=== PATIENT | male | born 1940 | race Caucasian/White ===

== ENCOUNTER 2022-03-01 05:54 | Inpatient (IN) | payer MEDICARE, BC ==
[2022-03-01] MEDS ORDERED: Naloxone HCl 0.4 mg/ml Vial ONE (06:02)
[2022-03-01 06:14] LABS: #Basophils 0.1 thou/uL (0.0-0.2); #Eosinphils 0.2 thou/uL (0.0-0.7); #Lymphocytes 3.9 thou/uL (1.20-3.40); #Monocytes 0.8 thou/uL (0.11-0.59); #Neutrophils 5.4 thou/uL (1.40-6.50); %Basophils 0.8 % (0.0-1.0); %Eosinophils 1.8 % (0.0-10.0); %Lymphocytes 37.5 % (21.0-51.0); %Monocytes 7.9 % (0.0-10.0); %Neutrophils 51.9 % (42.0-75.0); Mean Corpuscular HGB CONC 32.9 g/dL (32.0-36.0); Mean Corpuscular Hemoglobin 30.5 pg (27.0-31.0); Mean Corpuscular Volume 92.4 fL (78.0-98.0); Mean Platelet Volume 6.3 fL (7.4-10.4); Platelet Count 257 thou/uL (130-400); RBC Distribution Width 14.2 % (11.5-14.5); Red Blood Cell (RBC) Count 4.92 mill/uL (4.70-6.10); White Blood Cell (WBC) Count 10.4 thou/uL (4.8-10.8)
[2022-03-01 06:28] LABS: INR-International Normal Ratio 1.6; PTT 43.8 sec (22.9-36.1)
[2022-03-01 06:30] LABS: ALT (SGPT) 16 U/L (8-55); AST (SGOT) 21 U/L (5-34); Albumin 3.8 g/dL (3.4-4.8); Alkaline Phosphatase 65 U/L (40-110); Anion Gap 15 mmol/L (10-20); BUN (Urea Nitrogen) 16 mg/dL (8.4-25.7); Bilirubin, Total 0.7 mg/dL (0.2-1.2); CK (CPK) 63 U/L (30-200); Calc. Creatinine Clearance 0 mL/min (70-130); Calcium 8.9 mg/dL (7.8-10.44); Carbon Dioxide 22 mmol/L (23-31); Chloride 104 mmol/L (98-107); Globulin 3.2 g/dL (2.4-3.5); Glucose 181 mg/dL (83-110); Potassium 4.1 mmol/L (3.5-5.1); Sodium 137 mmol/L (136-145)
[2022-03-01 08:02] LABS: Bilirubin Negative (Negative); Blood, Urine Negative (Negative); Clarity Clear (Clear); Glucose, Urine (Dipstick) Normal (Negative); Ketone, Urine Negative (Negative); Leukocyte Negative Leu/uL (Negative); Nitrite Negative (Negative); Protein, Urine (Dipstick) Negative (Neg-Trace); Specific Gravity, Urine 1.011 (1.002-1.036); Urobilinogen Normal mg/dL (Less than 2)
[2022-03-01] MEDS ORDERED: Sucralfate 1 GM/10 ML UDCUP ONE (08:21)
[2022-03-01] MEDS ORDERED: Pantoprazole 40 MG VIAL ONE (08:21)
[2022-03-01] MEDS ORDERED: Metoclopramide 10 MG/10 ML UDCUP ONE (08:21)
[2022-03-01] MEDS ORDERED: Metoclopramide HCl 10 MG/2 ML VIAL ONE (08:22)
[2022-03-01] MEDS ORDERED: Mag-Al 1200 mg/1200 mg/30 ML UDCUP ONE (11:33)
[2022-03-01] MEDS ORDERED: Lidocaine Viscous Sol 2% 15 ml UD Cup ONE (11:33)
[2022-03-01] MEDS ORDERED: Sodium Chloride 0.9% 1,000 ML IV SCH (15:30)
[2022-03-01] MEDS ORDERED: Ondansetron PF 4 MG/2 ML Vial IVP PRN (15:30)
[2022-03-01] MEDS ORDERED: Ondansetron ODT 4 MG TAB SL PRN (15:30)
[2022-03-01] MEDS ORDERED: Acetaminophen 325 MG TAB PO PRN (15:30)
[2022-03-01 16:40] VITALS: BMI 33.3
[2022-03-01] MEDS ORDERED: hydrALAZINE 20 MG/ML VIAL SLOW IVP PRN (19:41)
[2022-03-01] MEDS ORDERED: Lorazepam 2 MG/ML VIAL SLOW IVP PRN (20:11)
[2022-03-01] MEDS ORDERED: Atorvastatin Calcium 20 MG TAB PO SCH (21:00)
[2022-03-01] MEDS: Atorvastatin Calcium 40 MG TAB PO SCH (21:22)
[2022-03-01] MEDS: Sucralfate 1 GM TAB PO PRN (21:22)
[2022-03-02] MEDS ORDERED: Ondansetron PF 4 MG/2 ML Vial IVP PRN (04:55)
[2022-03-02] MEDS ORDERED: Ondansetron ODT 4 MG TAB PO PRN (04:57)
[2022-03-02] MEDS: Levothyroxine Sodium 75 MCG TAB PO SCH (05:00)
[2022-03-02 06:56] LABS: ALT (SGPT) 17 U/L (8-55); AST (SGOT) 25 U/L (5-34); Albumin 3.6 g/dL (3.4-4.8); Alkaline Phosphatase 58 U/L (40-110); Anion Gap 13 mmol/L (10-20); BUN (Urea Nitrogen) 10 mg/dL (8.4-25.7); Calc. Creatinine Clearance 142 mL/min (70-130); Calcium 8.5 mg/dL (7.8-10.44); Carbon Dioxide 24 mmol/L (23-31); Cardiac Risk 2.8 (Less than 4.5); Chloride 106 mmol/L (98-107); Cholesterol 133 mg/dl (< 200 Desired); Globulin 2.9 g/dL (2.4-3.5); Glucose 102 mg/dL (83-110); HDL Cholesterol 47 mg/dL (>60 Neg Risk); LDL Cholesterol, Calculated 75 mg/dL; Potassium 3.9 mmol/L (3.5-5.1); Protein, Total 6.5 g/dL (5.8-8.1); Sodium 139 mmol/L (136-145); Triglycerides 54 mg/dL (Less than 150)
[2022-03-02] MEDS: Sucralfate 1 GM TAB PO PRN ×3 (08:51→20:54)
[2022-03-02] MEDS: Rivaroxaban 2.5 MG TAB PO SCH (09:00)
[2022-03-02] MEDS ORDERED: Clopidogrel Bisulfate 75 MG TAB PO SCH (09:00)
[2022-03-02] MEDS: Atorvastatin Calcium 40 MG TAB PO SCH (20:54)
[2022-03-03] MEDS: Levothyroxine Sodium 75 MCG TAB PO SCH (05:03)
[2022-03-03 05:41] LABS: ALT (SGPT) 18 U/L (8-55); AST (SGOT) 25 U/L (5-34); Albumin 3.6 g/dL (3.4-4.8); Alkaline Phosphatase 58 U/L (40-110); Anion Gap 13 mmol/L (10-20); BUN (Urea Nitrogen) 9 mg/dL (8.4-25.7); Bilirubin, Total 1.1 mg/dL (0.2-1.2); Calc. Creatinine Clearance 131 mL/min (70-130); Calcium 8.4 mg/dL (7.8-10.44); Carbon Dioxide 25 mmol/L (23-31); Chloride 103 mmol/L (98-107); Glucose 92 mg/dL (83-110); Potassium 3.6 mmol/L (3.5-5.1); Protein, Total 6.6 g/dL (5.8-8.1); Sodium 137 mmol/L (136-145)
[2022-03-03] MEDS: Rivaroxaban 2.5 MG TAB PO SCH (08:32)
[2022-03-03] MEDS: Sucralfate 1 GM TAB PO PRN ×4 (08:32→21:09)
[2022-03-03] MEDS ORDERED: Rivaroxaban 10 MG TAB PO SCH (20:30)
[2022-03-03] MEDS ORDERED: diphenhydrAMINE 25 MG CAP PO PRN (20:39)
[2022-03-03] MEDS: Atorvastatin Calcium 40 MG TAB PO SCH (21:07)
[2022-03-03] MEDS: Acetaminophen 325 MG TAB PO PRN (21:08)
[2022-03-04] MEDS: Levothyroxine Sodium 75 MCG TAB PO SCH (05:32)
[2022-03-04 05:57] LABS: ALT (SGPT) 18 U/L (8-55); AST (SGOT) 25 U/L (5-34); Albumin 3.4 g/dL (3.4-4.8); Alkaline Phosphatase 54 U/L (40-110); Anion Gap 15 mmol/L (10-20); BUN (Urea Nitrogen) 13 mg/dL (8.4-25.7); Bilirubin, Total 1.2 mg/dL (0.2-1.2); Calc. Creatinine Clearance 133 mL/min (70-130); Calcium 8.9 mg/dL (7.8-10.44); Carbon Dioxide 19 mmol/L (23-31); Chloride 106 mmol/L (98-107); Glucose 86 mg/dL (83-110); Protein, Total 6.4 g/dL (5.8-8.1); Sodium 136 mmol/L (136-145)
[2022-03-04 06:02] LABS: Hemoglobin A1c 5.8 % (4.0-6.0)
[2022-03-04] MEDS: Rivaroxaban 10 MG TAB PO SCH (08:33)
[2022-03-04] MEDS ORDERED: NIFEdipine XL 30 MG TAB PO SCH (10:45)
[2022-03-04] MEDS: Sucralfate 1 GM TAB PO PRN ×2 (14:32→20:39)
[2022-03-04] MEDS: Acetaminophen 325 MG TAB PO PRN (17:37)
[2022-03-04] MEDS ORDERED: diphenhydrAMINE 25 MG CAP PO SCH (19:45)
[2022-03-04] MEDS: Atorvastatin Calcium 40 MG TAB PO SCH (20:38)
[2022-03-05 05:35] LABS: #Eosinphils 0.1 thou/uL (0.0-0.7); #Lymphocytes 3.1 thou/uL (1.20-3.40); #Monocytes 1.6 thou/uL (0.11-0.59); #Neutrophils 6.9 thou/uL (1.40-6.50); %Basophils 0.2 % (0.0-1.0); %Eosinophils 0.9 % (0.0-10.0); %Lymphocytes 26.2 % (21.0-51.0); %Monocytes 13.5 % (0.0-10.0); %Neutrophils 59.1 % (42.0-75.0); Hemoglobin 15.2 g/dL (14.0-18.0); Mean Corpuscular HGB CONC 32.7 g/dL (32.0-36.0); Mean Corpuscular Hemoglobin 29.9 pg (27.0-31.0); Mean Corpuscular Volume 91.5 fL (78.0-98.0); Mean Platelet Volume 6.4 fL (7.4-10.4); Platelet Count 257 thou/uL (130-400); RBC Distribution Width 13.9 % (11.5-14.5); Red Blood Cell (RBC) Count 5.07 mill/uL (4.70-6.10); White Blood Cell (WBC) Count 11.7 thou/uL (4.8-10.8)
[2022-03-05 05:52] LABS: ALT (SGPT) 17 U/L (8-55); AST (SGOT) 22 U/L (5-34); Albumin 3.4 g/dL (3.4-4.8); Alkaline Phosphatase 55 U/L (40-110); Anion Gap 13 mmol/L (10-20); BUN (Urea Nitrogen) 16 mg/dL (8.4-25.7); Bilirubin, Total 1.1 mg/dL (0.2-1.2); Calc. Creatinine Clearance 135 mL/min (70-130); Calcium 8.6 mg/dL (7.8-10.44); Carbon Dioxide 24 mmol/L (23-31); Chloride 103 mmol/L (98-107); Globulin 2.8 g/dL (2.4-3.5); Glucose 95 mg/dL (83-110); Potassium 3.4 mmol/L (3.5-5.1); Protein, Total 6.2 g/dL (5.8-8.1); Sodium 137 mmol/L (136-145)
[2022-03-05] MEDS: Levothyroxine Sodium 75 MCG TAB PO SCH (05:53)
[2022-03-05] MEDS: Sucralfate 1 GM TAB PO PRN (06:02)
[2022-03-05] MEDS: Rivaroxaban 10 MG TAB PO SCH (08:02)
[2022-03-05] MEDS: NIFEdipine XL 30 MG TAB PO SCH (08:02)
[2022-03-05] MEDS ORDERED: Bisacodyl 5 MG TAB PO PRN (08:20)
[2022-03-05] MEDS: Atorvastatin Calcium 40 MG TAB PO SCH (20:28)
[2022-03-05] MEDS: Acetaminophen 325 MG TAB PO PRN (20:28)
[2022-03-06] MEDS: Levothyroxine Sodium 75 MCG TAB PO SCH (05:09)
[2022-03-06 05:39] LABS: ALT (SGPT) 18 U/L (8-55); AST (SGOT) 25 U/L (5-34); Albumin 3.5 g/dL (3.4-4.8); Alkaline Phosphatase 55 U/L (40-110); Anion Gap 14 mmol/L (10-20); BUN (Urea Nitrogen) 13 mg/dL (8.4-25.7); Calc. Creatinine Clearance 129 mL/min (70-130); Calcium 8.6 mg/dL (7.8-10.44); Carbon Dioxide 26 mmol/L (23-31); Chloride 102 mmol/L (98-107); Glucose 90 mg/dL (83-110); Potassium 3.5 mmol/L (3.5-5.1); Protein, Total 6.5 g/dL (5.8-8.1); Sodium 138 mmol/L (136-145)
[2022-03-06] MEDS: NIFEdipine XL 30 MG TAB PO SCH (09:11)
[2022-03-06] MEDS: Rivaroxaban 10 MG TAB PO SCH (09:12)
[2022-03-06 11:44] VITALS: TEMP 97.7
[2022-03-06 16:16] VITALS: BP 150/80
[2022-03-07] MEDS ORDERED: Aspirin Chewable 81 MG TAB PO SCH (09:00)
== END 2022-03-06 17:00 | DRG 65 ==
LOC: ERS 05:54 → EEVIPCON 05:54 → NEURO 14:50 → OBSVTOIN 03-02 16:17
PROVIDERS: ADMIT Family Medicine; ATTEND Internal Medicine
PROC: 4A10X4Z Monitoring of Central Nervous Electrical Activity, External Approach (ICD-10-PCS; principal; 2022-03-02)
DX: I63.9 Cerebral infarction, unspecified (principal); I48.20 Chronic atrial fibrillation, unspecified; G93.49 Other encephalopathy; I74.9 Embolism and thrombosis of unspecified artery; I63.89 Other cerebral infarction; I10 Essential (primary) hypertension; E78.5 Hyperlipidemia, unspecified; I48.91 Unspecified atrial fibrillation; E03.9 Hypothyroidism, unspecified; N40.0 Benign prostatic hyperplasia without lower urinary tract symptoms; K25.9 Gastric ulcer, unspecified as acute or chronic, without hemorrhage or perforation; Z20.822 Contact with and (suspected) exposure to COVID-19; R47.01 Aphasia; Z86.73 Personal history of transient ischemic attack (TIA), and cerebral infarction without residual deficits; Z79.01 Long term (current) use of anticoagulants; Z95.0 Presence of cardiac pacemaker; Z85.118 Personal history of other malignant neoplasm of bronchus and lung; Z79.899 Other long term (current) drug therapy; Z90.49 Acquired absence of other specified parts of digestive tract; Z87.891 Personal history of nicotine dependence
CPT/HCPCS: 36415; 36416; 70450; 70496; 70498; 71045; 74018; 80053; 80061; 81003; 82140; 82550; 83036; 83605; 84443; 84484; 85025; 85610; 85730; 87040; 87086; 93005; 93306; 95712; 95819; 95957; 96375; C9113; G0378; J2060; J2310; J2405; J2765; J7050; Q0162; U0003; U0005

== ENCOUNTER 2025-05-12 12:13 | Emergency (ER) | payer MEDICARE, BC ==
[~2025-05-12 12:13] MED LIST: Iopamidol-370 76% 500 ML MDV (1 ML CHARGE) ONE
[2025-05-12] MEDS ORDERED: Ondansetron PF 4 MG/2 ML Vial ONE (13:26)
[2025-05-12 13:51] LABS: #Basophils 0.03 10x3/uL (0.0-0.2); #Eosinophils 0.03 10x3/uL (0.0-0.7); #Monocytes 0.90 10x3/uL (0.11-0.59); #Neutrophils 7.22 10x3/uL (1.40-6.50); %Basophils 0.3 % (0.0-1.0); %Eosinophils 0.3 % (0.0-10.0); %Lymphocytes 17.6 % (21.0-51.0); %Monocytes 9.0 % (0.0-10.0); %Neutrophils 72.3 % (42.0-75.0); Hematocrit 42.4 % (42.0-52.0); Hemoglobin 13.9 g/dL (14.0-18.0); Mean Corpuscular Hemoglobin 29.9 pg (27.0-31.0); Mean Corpuscular Volume 91.2 fL (78.0-98.0); Platelet Count 207 10x3/uL (130-400); Red Blood Cell (RBC) Count 4.65 mill/uL (4.70-6.10); White Blood Cell (WBC) Count 9.99 10x3/uL (4.8-10.8)
[2025-05-12 14:09] LABS: ALT (SGPT) 15 U/L (Less than 45); AST (SGOT) 19 U/L (11-34); Albumin 3.5 g/dL (3.1-4.5); Alkaline Phosphatase 60 U/L (40-110); Anion Gap 9 mmol/L (10-20); BUN (Urea Nitrogen) 15 mg/dL (8.4-25.7); Bilirubin, Total 0.6 mg/dL (0.3-1.2); Calc. Creatinine Clearance 0 mL/min (70-130); Calcium 8.6 mg/dL (7.8-10.44); Carbon Dioxide 23 mmol/L (23-31); Chloride 110 mmol/L (98-107); Globulin 2.5 g/dL (2.4-3.5); Glucose 107 mg/dL (83-110); Lipase 15 U/L (8-78); Potassium 4.2 mmol/L (3.5-5.1); Sodium 138 mmol/L (136-145)
[2025-05-12 14:27] LABS: Bacteria/HPF None Seen HPF (None Seen); CAUTI Indications for Culture Pelvic or flank pain; Glucose, Urine (Dipstick) Normal (Negative); Leukocyte Negative Leu/uL (Negative); Protein, Urine (Dipstick) Negative (Neg-Trace); RBC/HPF 0-3 HPF (0-3); Specific Gravity, Urine 1.009 (1.002-1.036); WBC/HPF 0-3 HPF (0-3)
[2025-05-12 14:34] LABS: Urine Culture Reflex No No
== END 2025-05-12 15:46 | disposition home or self-care (01) ==
LOC: ERS 12:13
DX: K57.92 Diverticulitis of intestine, part unspecified, without perforation or abscess without bleeding (principal); I10 Essential (primary) hypertension; E03.9 Hypothyroidism, unspecified; Z79.899 Other long term (current) drug therapy
CPT/HCPCS: 71045; 74177; 80053; 81001; 83690; 85025; 93005; 96374; 99285; J2405; Q9967